=== PATIENT | female | born 1980 | race Two or more races ===

== ENCOUNTER 2021-01-23 18:33 | Emergency (ER) | payer MEDICAID ==
[~2021-01-23] VITALS: Ht 154.9 cm; Wt 63.5 kg
[2021-01-23] MEDS ORDERED: IBUPROFEN 600 MG TABLET PO ONE (21:30)
[2021-01-23] MEDS ORDERED: IBUPROFEN 600 MG TABLET ONE (21:31)
[2021-01-23] MEDS ORDERED: ALPR0.25 PO (22:21)
[2021-01-23] MEDS ORDERED: HYDR-4209 PO (22:21)
--- NOTE | 2021-01-23 22:41 | NUR ---
Patient discharged to home in stable condition. Written and verbal after care instructions given. Patient verbalizes understanding of instructions. Stressed follow up or return to ER for worsening s/s.
[2021-01-23 22:42] VITALS: BP 138/79
== END 2021-01-23 22:42 | disposition home or self-care (01) ==
LOC: ER 18:53
DX: H92.02 Otalgia, left ear (principal); J02.9 Acute pharyngitis, unspecified; Z20.822 Contact with and (suspected) exposure to COVID-19; R03.0 Elevated blood-pressure reading, without diagnosis of hypertension
CPT/HCPCS: 86403; 87070; A4663